=== PATIENT | female | born 1990 | race Caucasian/White ===

== ENCOUNTER 2017-07-16 22:51 | Inpatient (IN) | payer OTHER ==
[2017-07-16 23:28] VITALS: BMI 31.1
[2017-07-16] MEDS ORDERED: Naloxone HCl 0.4 mg/ml Vial IV PRN (23:42)
[2017-07-16] MEDS ORDERED: Bupivacaine 0.5% 20 ML, Fentanyl 400 MCG in Sodium Chloride 0.9% 72 ML EPIDURAL SCH (23:45)
[2017-07-16] MEDS ORDERED: HYDROcodone/Acetaminophen 5/325 mg Tablet PO PRN ×2 (23:46)
[2017-07-16] MEDS ORDERED: LR / Pitocin 40 units/1000 ml 1,000 ML IV PRN (23:46)
[2017-07-16] MEDS ORDERED: Lidocaine 1% (PF) 30 ML VIAL SC PRN (23:46)
[2017-07-16] MEDS ORDERED: Ibuprofen 800 MG TAB PO PRN (23:46)
[2017-07-16] MEDS ORDERED: Ondansetron HCl/PF 4 MG/2 ML Vial IVP PRN (23:46)
[2017-07-16] MEDS ORDERED: Lactated Ringer's 1,000 ML IV SCH (23:59)
[2017-07-17 00:10] LABS: Hemoglobin 10.3 g/dL (12.0-16.0); Mean Corpuscular HGB CONC 33.1 g/dL (32.0-36.0); Mean Corpuscular Hemoglobin 25.8 pg (27.0-31.0); Mean Corpuscular Volume 77.8 fl (81.0-99.0); Mean Platelet Volume 8.5 fL (7.4-10.4); Platelet Count 229 thou/uL (130-400); Red Blood Cell (RBC) Count 3.99 mill/uL (4.20-5.40); White Blood Cell (WBC) Count 15.6 thou/uL (4.8-10.8)
[2017-07-17 00:47] LABS: HBSAg Index 0.23 S/CO (0-0.99); Hep B Surf Ag Non-Reactive S/CO (NonReactive); Syphilis Antibody Nonreactive (Nonreactive); Syphilis Antibody Index 0.05 S/CO (<1.00 Non-Reactive)
[2017-07-17] MEDS ORDERED: Fentanyl 100 MCG/2 ML VIAL ONE (01:19)
[2017-07-17] MEDS ORDERED: Bupivacaine 0.75% W/DEXTROSE 8.25% 2 ML AMP ONE (01:20)
[2017-07-17] MEDS: Lactated Ringer's 1,000 ML IV SCH (01:25)
[2017-07-17] MEDS ORDERED: Eucerin (Mineral Oil/Petrolatum,White) 30 gm Jar TOP PRN (01:46)
[2017-07-17] MEDS ORDERED: diphenhydrAMINE 50 MG/ML VIAL IVP PRN (01:46)
[2017-07-17] MEDS ORDERED: Lactated Ringer's 500 ML IV PRN (01:46)
[2017-07-17] MEDS ORDERED: Acetaminophen 325 MG TAB PO PRN (01:46)
[2017-07-17] MEDS ORDERED: ePHEDrine/0.9% NaCl/PF SYRINGE 50 mg/10 ml SLOW IVP PRN (01:46)
[2017-07-17] MEDS ORDERED: Ondansetron HCl/PF 4 MG/2 ML Vial IVP PRN ×2 (01:46→13:58)
[2017-07-17] MEDS ORDERED: Naloxone HCl 0.4 mg/ml Vial IVP PRN ×2 (01:46)
[2017-07-17] MEDS ORDERED: Fentanyl 100 MCG/2 ML VIAL I-THECAL SCH (01:46)
[2017-07-17] MEDS ORDERED: Promethazine HCl 25 MG/ML VIAL IM PRN (01:46)
[2017-07-17] MEDS ORDERED: Communication Order-Pharmacy FS SCH (02:00)
[2017-07-17] MEDS ORDERED: Fentanyl 4mcg/Marcaine 0.1% Cassette 100 ML EPIDURAL SCH (02:00)
[2017-07-17] MEDS ORDERED: Bupivacaine 0.75% W/DEXTROSE 8.25% 2 ML AMP NERVE BLCK SCH (02:00)
[2017-07-17] MEDS ORDERED: Misoprostol 200 MCG TAB ONE (08:18)
--- NOTE | 2017-07-17 08:52 | PDOC.OPDEL ---
OB Operative/Delivery Note Delivery Dr/Surgeon: Khoa Pre-Delivery Diagnosis: active labor Procedure/Post Delivery Dx: vaginal delivery after CS Weeks gestation: 40 - Findings A Sex: female - 1 min: 9 - 5 min: 9 - Additional Findings/Plan Placenta delivered: spontaneous Repaired Obstetrical Laceration: 2nd degree Estimated blood loss: 400ml Compilations/Other Findings: loose nuchal cord x 1, immediate skin to skin Post delivery plan: routine recovery
[2017-07-17] MEDS ORDERED: Milk Of Magnesia 30 ML UDCUP PO PRN (13:58)
[2017-07-17] MEDS ORDERED: Benzocaine/Menthol 20-0.5% 60 ML CAN TOP PRN (13:58)
[2017-07-17] MEDS ORDERED: Preparation H Ointment 28 GM TUBE PR PRN (13:58)
[2017-07-17] MEDS ORDERED: LR / Pitocin 40 units/1000 ml 1,000 ML IV SCH (13:58)
[2017-07-17] MEDS ORDERED: Lanolin Ointment 7 GM TUBE TOP PRN (13:58)
[2017-07-17] MEDS ORDERED: Bisacodyl 10 MG SUPP PR PRN (13:58)
[2017-07-17] MEDS ORDERED: diphenhydrAMINE 25 MG CAP PO PRN (13:58)
[2017-07-17] MEDS ORDERED: Acetaminophen/Codeine 30-300mg Tablet PO PRN (13:58)
[2017-07-17] MEDS: Ibuprofen 800 MG TAB PO SCH ×2 (14:35→20:50)
[2017-07-17] MEDS: Docusate Calcium (SURFAK) 240 MG CAP PO SCH (20:50)
[2017-07-18] MEDS: Acetaminophen/Codeine 30-300mg Tablet PO PRN ×2 (03:02→09:48)
[2017-07-18 05:52] LABS: Hemoglobin 7.7 g/dL (12.0-16.0); Mean Corpuscular HGB CONC 32.7 g/dL (32.0-36.0); Mean Corpuscular Volume 79.2 fl (81.0-99.0); Mean Platelet Volume 8.7 fL (7.4-10.4); Platelet Count 171 thou/uL (130-400); Red Blood Cell (RBC) Count 2.97 mill/uL (4.20-5.40); White Blood Cell (WBC) Count 12.2 thou/uL (4.8-10.8)
[2017-07-18] MEDS: Ibuprofen 800 MG TAB PO SCH ×3 (07:32→21:59)
--- NOTE | 2017-07-18 07:39 | PDOC.PP ---
Post Progress Note Post Day #: 1 Subjective: Doing well. Low back is sore today. PO intake tolerated: yes Ambulation: yes Vital Signs (12 hours) Temp Pulse Resp BP 07/18/17 04:00 98.4 F 65 18 101/59 L 07/18/17 00:00 98.1 F 70 18 07/17/17 20:00 99.6 F 99 18 Weight Weight 170 lb - Physical Examination Respiratory: non-labored breathing Abdominal: lochia (normal), no distention, appropriately TTP Fundus firm & at: U-4 Neurological: no gross focal deficits Psychiatric: A&Ox3, normal affect Result Diagrams: 07/18/17 05:19 Additional Labs: Post Labs Hep Bs Antigen Non-Reactive S/CO (NonReactive) 07/16/17 23:55 (1) Vaginal after , delivered, current hospitalization Code(s): O34.219 - MATERNAL CARE FOR UNSP TYPE SCAR FROM PREVIOUS DEL Status: Acute - Assessment/Plan Continue routine care. Anticipate d/c tomorrow.
[2017-07-18] MEDS: Ferrous Sulfate 325 MG TAB PO SCH ×3 (07:43→17:33)
[2017-07-18] MEDS ORDERED: Adacel (T-DAP) 0.5 ML VIAL IM ONE (09:00)
[2017-07-18] MEDS: Prenatal Vitamin 1 TAB PO SCH (09:46)
[2017-07-18] MEDS: Docusate Calcium (SURFAK) 240 MG CAP PO SCH ×2 (09:47→21:59)
--- NOTE | 2017-07-19 05:48 | PDOC.EVN ---
Event Note - Event Note Event Note: DISCHARGE NOTE ADMISSION: 07/16/17 Discharge: 07/19/17 Procedure: Patient s/p , now ppd 2 S. NO NEW ISSUES, DOING WELL O. vss AFEBRILE LAST hct 23 ABD SOFT, NT NO ACTIVE vb ASSESSMENT/PLAN: PPD2 stable for discharge. home with motrin prn. follow up in 4 -6 weeks
[2017-07-19] MEDS: Ibuprofen 800 MG TAB PO SCH (06:44)
[2017-07-19] MEDS: Lactated Ringer's 1,000 ML IV SCH (07:32)
[2017-07-19 08:24] VITALS: BP 111/60; TEMP 99.1
[2017-07-19] MEDS: Docusate Calcium (SURFAK) 240 MG CAP PO SCH (09:20)
[2017-07-19] MEDS: Ferrous Sulfate 325 MG TAB PO SCH (09:20)
[2017-07-19] MEDS: Prenatal Vitamin 1 TAB PO SCH (09:20)
== END 2017-07-19 10:05 | disposition home or self-care (01) | DRG 775 ==
LOC: L&D/OP 22:51 → L&D 23:57 → 3SW 07-17 10:47
PROVIDERS: ADMIT Obstetrics & Gynecology; ATTEND Obstetrics & Gynecology
PROC: 10E0XZZ Delivery of Products of Conception, External Approach (ICD-10-PCS; principal; 2017-07-17)
PROC: 0KQM0ZZ Repair Perineum Muscle, Open Approach (ICD-10-PCS; 2017-07-17)
PROC: 10907ZC Drainage of Amniotic Fluid, Therapeutic from Products of Conception, Via Natural or Artificial Opening (ICD-10-PCS; 2017-07-17)
DX: O34.219 Maternal care for unspecified type scar from previous cesarean delivery (principal); O69.81X0 Labor and delivery complicated by cord around neck, without compression, not applicable or unspecified; O70.1 Second degree perineal laceration during delivery; Z3A.40 40 weeks gestation of pregnancy; Z37.0 Single live birth
CPT/HCPCS: 36415; 51702; 85027; 86780; 87340; 99285; J0595; J3010; J3490; J7050

== ENCOUNTER 2019-03-28 08:34 | Outpatient (CLI) | payer BC ==
--- NOTE | 2019-03-28 11:40 | MRI ---
MRI LEFT KNEE: Date: 03/28/19 PROVIDED CLINICAL HISTORY: Pain status post injury. FINDINGS: Postoperative changes of ACL reconstruction are demonstrated with an intact appearance to the ischial graft. There is no evidence for mass-producing arthrofibrosis. [place] changes involving the patella r tendon are noted. The posterior cruciate ligament, medial collateral ligament, and lateral collateral ligamentous compl ex appear intact, as does the extensor mechanism. There is a deficient appearance to the medial meniscus compatible with changes of prior medial menisc ectomy. No definite Grade III signal is apparent. No focal articular cartilage defect is apparent. There is marrow edema seen involving the posterior aspects of the lateral tibial plateau. Regional ma rrow and muscular signal appear otherwise normal, where unaffected by susceptibility artifact. There is anterior tibial translation. There is a small knee joint effusion. IMPRESSION: 1. Intact appearance to the ACL graft with nonspecific anterior tibial translation. Correlate with c oncerns for graft sufficiency. 2. Contusion involving posterolateral tibial plateau. 3. Small knee joint effusion. POS: OFF
== END 2019-03-28 08:35 | disposition home or self-care (01) ==
LOC: MRI 08:34
PROVIDERS: ATTEND Orthopaedic Surgery
DX: M25.562 Pain in left knee (principal); S80.02XA Contusion of left knee, initial encounter; M25.462 Effusion, left knee